=== PATIENT | male | born 1940 | race Caucasian/White ===

== ENCOUNTER 2024-12-19 09:24 | Emergency (ER) | payer MEDICARE, OTHER, SELFPAY ==
[2024-12-19] VITALS (8 sets, daily range): BP systolic 113–151; BP diastolic 56–110; BMI 26.5
--- NOTE | 2024-12-19 09:58 | ED.GENMED ---
History of Present Illness
General
Chief Complaint: Psychiatric Problem
Source: family and ambulance crew
Exam Limitations: dementia
Time Seen by Provider: 12/19/24 09:39
Nursing documentation reviewed up to this point in time: agreed with
History of Present Illness
History of Present Illness:
pt is a 84 y/o M with h/o parkinsons/dementia, htn,hld
here with ams per EMS per family
pt is not really able to offer any history
he is awake and alert, oriented to person and follows commands but is not able to answer many questions, is not oriented to time/place or situation
family did arrive, daughter and
and they are primary historians
say that 3 weeks ago pt was having more agitation and refusin to do things making it difficult to care for him
so his neurologist changed meds
d/c the cymbalta and seroquel and started zoloft and abilify
he has had worsenign agitation at times over the past 2 weeks
he has been refusing to cooperate and this is frustrating
he usually goes up and down the steps when daughter is home to walk inf ront of/behnid him but more recently it seems he doesn't want to do that, nor does he have strength to do it
they want to keep him home as long as possible and do not want him in residential care
they are wondering if there is some medical cause for his change in behavior
they also note pt has chronic facial asymmetry without any changes to his appearnce
Past History
Past History
ED Past Medical History: HTN, Hypercholesterolemia, Other (Mild memory issues) and Other (Chronic back issues)
ED Past Surgical History: Orthopedic and Tonsilectomy
Social History
Tobacco: Non-smoker
Alcohol: None
Drug: None
Personal:
Living: with family
Employment: Employed
Review of Systems
Review of Systems
Allergies reviewed?: Yes
All Other Systems: Not applicable
Phy Exam
Physical Exam
Physical Exam:
GENERAL: Alert , in no apparent distress, oriented x 1
HEAD: NCAT
EYE: pupils equal and reactive, no nystagmus, no photophobia
NECK: Supple,full rom, nontender
ENT: o/p clr, mmm.
CARDIAC: Regular rate and rhythm . no edema
LUNGS: Clear breath sounds bilaterally, no acute respiratory distress, no wheezes/rales/rhonchi
ABDOMEN: Soft, without focal tenderness, no r/g, no cvat
NEUROLOGICAL: alert and oriented x 1; slight downsloping of L corner of mouth; elevates it some but not symmetric to R side; 5/5
SKIN: Warm and dry, skin intact.
MUSCULOSKELETAL: No edema, well perfused.
PSYCH: Normal and appropriate interaction.
Course
Orders/Labs/Results
Orders:
Orders
12/19/24 09:47
Cardiac Monitoring- Treatment ONCE
Straight cath- Treatment ONCE
12/19/24 09:48
Electrocardiogram (*1) Stat
Reason for Study: Other
Other Reason for Exam: neuro symptoms
CT Head W/o Iv Contrast Urgent
Comment:
Reason For Exam: parkinsons; agitation; L facial droop
EKG- Treatment ONCE
12/19/24 10:16
Complete Blood Count/With Diff Urgent
Comprehensive Metabolic Panel Urgent
12/19/24 11:28
Urinalysis Reflex To Culture Urgent
Date Specimen was Collected: 12/19/24
Time Specimen was Collected: 11:27
12/19/24 11:55
Case Management Consult ONCE
Case Management Consult: Discharge Planning
Pt Eval And Treat Urgent
Activity Level: Ambulate
12/19/24 13:08
Carbidopa/Levodopa [Sinemet 25-100] 1 tablet PO NOW STA
12/19/24 13:20
Carbidopa/Levodopa [Sinemet 25-100] 1 tablet PO NOW STA
12/19/24 13:38
Case Management Consult ONCE
Case Management Consult: VN/Home Care
12/19/24 14:12
0.9% Sodium Chloride 250 ml [Nss] 250 ml IV BOLUS
12/19/24 23:00
Flush (0.9% Sodium Chloride) [Flush (Nss)] See Dose Instructions IV PER PROTOCOL
Abnormal Lab Results
12/19/24 12/19/24
10:16 11:28
RBC 4.61 L 10^6/uL
(4.70-6.10)
MCV 96.3 H fL
(80.0-94.0)
MCH 32.3 H pg
(27.0-31.0)
MPV 10.7 H fL
(7.4-10.4)
Abs Immat Gran (auto) 0.1 H 10^3/uL
(0-0.05)
Absolute Lymphs (auto) 0.8 L 10^3/uL
(1.2-3.4)
Absolute Monos (auto) 0.7 H 10^3/uL
(0.1-0.6)
Immature Gran % 1.1 H %
(0-0.5)
Neutrophils % 77.7 H %
(42.2-75.2)
Lymphocytes % 10.1 L %
(20.5-51.1)
AST 16 L U/L
(17-59)
Urine Ketones 1+ A
(Negative)
12/19/24 10:16
12/19/24 10:16
Vital Signs
Initial and Last Documented VS:
Initial Vital Signs
Temp Pulse Resp BP Pulse Ox
36.7 C 57 16 130/61 96
12/19/24 09:30 12/19/24 09:30 12/19/24 09:30 12/19/24 09:30 12/19/24 09:30
Last Documented Vital Signs
Temp Pulse Resp BP Pulse Ox
36.7 C 49 13 113/90 96
12/19/24 09:30 12/19/24 10:30 12/19/24 10:30 12/19/24 14:00 12/19/24 10:45
MDM/Problems Addressed
Differential Diagnosis Includes:
dementia, UTI, dehydration, stroke
MDM/Problems Addressed:
84 y/o M
parkinsons
chroincally worsening for 6 mo
family noticing some more dementia, refusal at activity/eating/slight agitation worse in the past 3 weeks
amado tto neuro and got new meds (abilify and zoloft)
on for 2 weeks and not really noticing any changes
pt seems to be more agitated about getting up and down the steps than weak
pt is sleeping, easily arousable and oriented to person
i noticed a sligth L facial droop which family says is normal
he has no focal strength deficity
medically he has hr 50s sinus
nomral bp
some chornic skin changes L arm bruising but nothing new;
seen by pcp and neuro
ct head no actue findings
wbc normal
bun normal
sodium normal
ua neg for infection
1+ ketones
small fluids given
no findings to explain his symptoms
suspect this is worsening of his parkinsons
daughter very adament about getting him home and not to NH
but she felt that he could use PT
PT eval here suggested that he could go to skilled but CM consult placed and but unable too place from ED and pt would like have obs admission, out of pocket cost which family declined
instead, they are arranging for hospital bed for their first floor which is happening today
as well as a chair lift
they want to keep him home
home PT will be arranged
family comfortable with this plan for now
*Critical Care Note
Total Time (30-74mins, 75-104mins- exclusive of procedures): Not Applicable
ED Attending Note
-
Portions of this chart may have been created with voice recognition software.� Occasional wrong word or��sound alike� substitutions may have occurred due to the inherent limitations of voice recognition software.
Discharge Plan
Departure
Patient Disposition: Home (Routine Discharge)
Date of Disposition: 12/19/24
Time of Disposition: 14:46
Patient with high blood pressure during this ER visit?: No
Condition: Fair
Covid-19: Not Applicable
Discharge Problem:
Dementia due to Parkinson's disease, Ambulatory dysfunction
Instructions: Parkinson disease, Dementia - ED discharge instructions
Prescriptions:
No Action
multivitamin Tablet
1 tab PO DAILY Qty: 0
atorvastatin 10 MG tablet
10 mg PO DAILY
calcium carbonate-vitamin D3 [Calcium 600 + D(3)] 600 mg-5 mcg (200 unit) Tablet
1 tab PO DAILY Qty: 0
ascorbic acid (vitamin C) [Vitamin C] 500 MG tablet
500 mg PO DAILY
lisinopril 5 MG tablet
5 mg PO DAILY
coenzyme Q10 [Co Q-10] 30 mg Capsule
30 mg PO DAILY Qty: 0
ibuprofen 600 MG tablet
600 mg PO TIDPRN PRN (Reason: mild pain)
fluticasone propionate 1 SPRAY spray,suspension
2 spray intranasal BIDPRN PRN (Reason: congestion)
citalopram 40 mg tablet
40 mg PO DAILY
donepezil 10 mg tablet
20 mg PO DAILY
clonazepam 1 mg tablet
1 mg PO HS
Patient Comments:
07/03/2023: last filled 06/11/23, 30 tabs for 30 days from [facility]
carbidopa-levodopa 25-100 mg tablet
1.5 tab PO TID
quetiapine 50 mg tablet
50 mg PO HS
memantine 28 mg capsule,sprinkle,ER 24hr
28 mg PO DAILY
Paxlovid 300 mg (150 mg x 2)-100 mg tablets,dose pack
See Rx Instructions .ROUTE .COMPLEX Qty: 30 0RF
Rx Instructions:
take TWO 150 mg tablets of nirmatrelvir with ONE 100 mg tablet of ritonavir twice daily for 5 days
Referrals:
Tex Orosco DO [Family Provider] -
Activity Restrictions/Additional Instructions:
I BELIEVE ISABELA IS EXPERIENCING SYPMTOSM OF HIS DEMENTIA RELATED TO HIS PARKINSONS
THERE WERE NO ACUTE FINDINGS TODAY
HE MAY HAVE BEEN MIIMIALLY DEHYDRATED, TRY TO HAVE HIM DRINK FLUIDS
SEE THE NEUROLOGIST REGARDING HIS MEDICATIONS
RETURN FOR INCREASED WEAKNESS, FALLS, FEVER ETC
OTHERWISE HOPEFULLY THE HOME PT AND THE HOSPITAL BED HELP
Interventions
Interventions:
*Risk Screen - Suicide Last Done: 12/19/24 09:30
*General Assessment Last Done: 12/19/24 09:30
*Neglect/Abuse Screening Last Done: 12/19/24 09:30
*ED- Fall Risk Assessment Last Done: 12/19/24 16:00
*ED COVID-19 Vaccine History Last Done: 12/19/24 16:00
*Nursing Disposition Last Done: 12/19/24 16:00
Discharge Date and Time
Discharge Date/Time: 12/19/24 16:00
Print Language: CHINESE
[2024-12-19 10:40] LABS: % Basophils 0.3 % (0-2); % Eosinophils 1.5 % (0-6); % Immature Granulocytes 1.1 % (0-0.5); % Lymphocytes 10.1 % (20.5-51.1); % Monocytes 9.3 % (1.7-9.3); % Neutrophils 77.7 % (42.2-75.2); Absolute Eosinophils 0.1 10^3/uL (0-0.7); Absolute Immature Granulocytes 0.1 10^3/uL (0-0.05); Absolute Lymphocytes 0.8 10^3/uL (1.2-3.4); Absolute Monocytes 0.7 10^3/uL (0.1-0.6); Absolute Neutrophils 6.1 10^3/uL (1.4-6.5); Hematocrit 44.4 % (39.0-52.0); Hemoglobin 14.9 g/dL (13.0-18.0); Mean Corp Hgb Conc. 33.6 g/dL (33.0-37.0); Mean Corpuscular Hgb 32.3 pg (27.0-31.0); Mean Corpuscular Volume 96.3 fL (80.0-94.0); Mean Platelet Volume 10.7 fL (7.4-10.4); Nucleated Red Blood Cells % 0 % (-); Platelet Count 244 10^3/uL (130-400); Red Blood Cell Count 4.61 10^6/uL (4.70-6.10); White Blood Cell Count 7.9 10^3/uL (4.8-10.8)
[2024-12-19 10:48] LABS: ALT (SGPT) < 10 U/L (0-50); AST (SGOT) 16 U/L (17-59); Alkaline Phosphatase 94 U/L (38-126); Blood Urea Nitrogen 12 mg/dl (9-20); Carbon Dioxide 29 mmol/L (22-30); Chloride 105 mmol/L (98-107); Estimated Creatinine Clearance 64 ml/min; Glucose 85 mg/dl (70-99); Potassium 4.5 mmol/L (3.5-5.1); Sodium 141 mmol/L (135-145); Total Bilirubin 0.9 mg/dl (0.2-1.3); Total Protein 6.5 g/dl (6.3-8.2); eGFR > 60.00
[2024-12-19 11:46] LABS: Urine Albumin Negative (Neg - Trace); Urine Bilirubin Negative (Negative); Urine Character Clear (Clear); Urine Color Yellow; Urine Glucose Negative (Negative); Urine Ketone 1+ (Negative); Urine Leukocyte Negative (Negative); Urine Nitrite Negative (Negative); Urine Occult Blood Negative (Negative); Urine Urobilinogen Negative (Neg - 1+)
[2024-12-19] MEDS: SINEMET 25-100 1 TABLET PO ×2 (13:31)
--- NOTE | 2024-12-19 13:59 | CM ---
Addendum entered by KRIS Duron 12/19/24 15:09:
Spoke to . Dgtr had call from [facility] and went home to get bed. says her son will also help get patient in house.
CM completed forms from [facility] for hospital bed and faxed back. Forms and documentation for bed given to [facility] liaison.
Original Note:
Met with patient, and dgtr. Spoke to PT and Ed PA. Patient lives with dgtr and his . He has Parkinson's and dementia. Last 2 days it has been more difficult to get him down stairs and to get him to walk. He has a rolling walker and shower
rails. They live in 2 level town home with half bath on entry level recruiter. 2-3 steps to enter home.
Full flight to second floor where patient bedroom and full bathroom are. Dgtr has started to call to set up having stairglide put in.
CM tried to get patient into [facility] program but he is not eligible for this. Dgtr not happy that medicare will not cover snf for short term.
CM talked extensively with and dgtr. Dgtr agreed to try to take patient home with first floor set up if CM can get hospital bed delivered today.
CM called [facility]. Script, face sheet and clinical notes from ER faxed to [phone].
phone for [facility] is [phone].
Dgtr is point person to schedule delivery of bed and her phone number provided to [facility].
Discussed VNA services. Dgtr wants RN, PT and [facility].
Discussed medicare ratings, options but had [facility] in past and would like them again. REferral information given to [facility] liaison.
PCP Cesar Orosco
Pharmacy: [facility]
PLAN: HOme from Er today if hospital bed can be delivered. and [facility].
[2024-12-19] MEDS: NSS 250 IV (14:24)
--- NOTE | 2024-12-19 14:52 | VNURNOTE ---
Chart reviewed. Home Health Liaison met with patient and spouse at bedside to discuss VN nurse/therapy, visits, schedule and homebound status. Spouse is agreeable and understands that visits at home will be 2-3 x per week to assess and teach
medical management. [facility] aware [facility] care [facility] 1-2 days after discharge from . Offered to order wheelchair- spouse declined. Daughter not present- was at house to accept hospital bed (ordered
through [facility]).
[facility].
== END 2024-12-19 16:00 | disposition home or self-care (01) ==
LOC: EMR 09:24
PROVIDERS: Physician Assistant; EMERGENCY PHYSICIAN Emergency Medicine; FAMILY PHYSICIAN Family Medicine; OTHER PHYSICIAN Psychiatry & Neurology Neurology
DX: G20.A1 Parkinson's disease without dyskinesia, without mention of fluctuations (principal); F02.A11 Dementia in other diseases classified elsewhere, mild, with agitation; R26.2 Difficulty in walking, not elsewhere classified; I10 Essential (primary) hypertension; E78.00 Pure hypercholesterolemia, unspecified; R29.810 Facial weakness; S40.022A Contusion of left upper arm, initial encounter; Z86.73 Personal history of transient ischemic attack (TIA), and cerebral infarction without residual deficits
CPT/HCPCS: 99284; 96360; 70450; 80053; 81003; 85025; 93005

== ENCOUNTER 2025-01-27 19:00 | Inpatient (IN) | payer MEDICARE, OTHER, SELFPAY ==
[2025-01-27 14:01] VITALS: BMI 26.7
[2025-01-27 14:04] VITALS: BP 156/64
[2025-01-27 14:23] LABS: % Basophils 0.4 % (0-2); % Eosinophils 0.8 % (0-6); % Immature Granulocytes 0.4 % (0-0.5); % Lymphocytes 7.6 % (20.5-51.1); % Monocytes 8.9 % (1.7-9.3); % Neutrophils 81.9 % (42.2-75.2); Absolute Eosinophils 0.1 10^3/uL (0-0.7); Absolute Lymphocytes 0.5 10^3/uL (1.2-3.4); Absolute Monocytes 0.6 10^3/uL (0.1-0.6); Absolute Neutrophils 5.8 10^3/uL (1.4-6.5); Hematocrit 42.8 % (39.0-52.0); Hemoglobin 14.4 g/dL (13.0-18.0); Mean Corp Hgb Conc. 33.6 g/dL (33.0-37.0); Mean Corpuscular Hgb 31.6 pg (27.0-31.0); Mean Corpuscular Volume 94.1 fL (80.0-94.0); Nucleated Red Blood Cells % 0 % (-); Platelet Count 245 10^3/uL (130-400); Red Blood Cell Count 4.55 10^6/uL (4.70-6.10); Red Cell Dist. Width 13.3 % (11.5-14.5); White Blood Cell Count 7.1 10^3/uL (4.8-10.8)
[2025-01-27 14:36] LABS: ALT (SGPT) < 10 U/L (0-50); AST (SGOT) 17 U/L (17-59); Albumin 4.1 g/dl (3.5-5.0); Alkaline Phosphatase 149 U/L (38-126); Blood Urea Nitrogen 16 mg/dl (9-20); Calcium 9.3 mg/dl (8.4-10.2); Carbon Dioxide 25 mmol/L (22-30); Chloride 108 mmol/L (98-107); Estimated Creatinine Clearance 71 ml/min; Glucose 91 mg/dl (70-99); Potassium 4.8 mmol/L (3.5-5.1); Sodium 140 mmol/L (135-145); Total Bilirubin 0.9 mg/dl (0.2-1.3); Total Protein 6.7 g/dl (6.3-8.2); eGFR > 60.00
[2025-01-27] MEDS: SINEMET 25-100 2 TABLET PO (16:44)
--- NOTE | 2025-01-27 17:24 | ED.GENMED ---
History of Present Illness
General
Chief Complaint: Change in Mental Status
Time Seen by Provider: 01/27/25 15:08
History of Present Illness
History of Present Illness:
84-year-old male presents the emergency department for evaluation of increased agitation and violent behavior. History of dementia. Resides at home with his and has been increasingly violent toward her to where she is concerned for her
safety. Patient cannot provide any independent history secondary to dementia
Past History
Past History
ED Past Medical History: HTN, Hypercholesterolemia, Other (Mild memory issues) and Other (Chronic back issues)
ED Past Surgical History: Orthopedic and Tonsilectomy
Social History
Tobacco: Non-smoker
Alcohol: None
Drug: None
Personal:
Living: with family
Employment: Employed
Review of Systems
Review of Systems
Allergies reviewed?: Yes
All Other Systems: ROS reviewed and negative except as documented in HPI and ROS
Phy Exam
Physical Exam
Physical Exam:
GEN: Well appearing, NAD, WDWN
HEENT: Oral mucosa moist, no scleral icterus
Cardiac: Regular rate
Lung: No respiratory distress, no tachypnea
MSK: No gross deformity or injuries
Skin: Good color, no pallor or jaundice, no rashes
Neuro: Alert, moving all extremities freely, pleasantly confused
Psych: Calm, cooperative
Course
Orders/Labs/Results
Orders:
Orders
01/27/25 14:00
EKG [Electrocardiogram (*1)] Urgent
Reason for Study: Fatigue / Weakness
EKG- Treatment ONCE
01/27/25 14:14
CBC/With Diff [Complete Blood Count/With Diff] Urgent
CMP [Comprehensive Metabolic Panel] Urgent
01/27/25 Dinner
IDDSI 5 - Minced & Moist
At Your Request: Full Participation
01/27/25 15:32
CT Head W/o Iv Contrast Urgent
Comment:
Reason For Exam: AMS
Urinalysis Reflex To Culture Urgent
Date Specimen was Collected: 01/27/25
Time Specimen was Collected: 15:36
01/27/25 16:26
Carbidopa/Levodopa [Sinemet 25-100] 2 tablet PO NOW STA
01/27/25 18:05
Admit/Transfer Patient As Directed
Co-Sign Provider:
Level of Care: Inpatient admission
Assign to:: Medical/Surgical
Physician / Group: Hospitalist
Diagnosis: Dementia
Reason for Hospitalization: .
Expected length of stay greater than two midnights?: Yes
ELOS- Estimated Length of Stay in days: 3
I certify the patient meets the requirements for IP care: Yes
PRN Pain Medication Management As Directed
May give lesser potent ordered pain med per pt: Yes
preference::
Protocol:: Medication orders for pain may be administered in a
manner that supports deferring to patient preference
when the pt is:
- Requesting an ordered lesser potent pain medication.
Least to most potent pain medications are defined
as: acetaminophen < NSAID < tramadol < opioids
(morphine, oxycodone, hydromorphone).
- Requesting a lesser dose of the same medication IF
ORDERED.
- Requesting a less intrusive route of administration
if both routes are prescribed by the provider (PO <
IV).
01/27/25 18:06
Code Status As Directed
Resuscitation Status: Do not resuscitate
Reached after discussion with pt or family/Healthcare POA: Yes
DNR Bracelet Application ONCE
01/27/25 18:08
Case Management Consult ONCE
Case Management Consult: Discharge Planning
Ot Eval And Treat Routine
Pt Eval And Treat Routine
Activity Level: Ambulate
01/27/25 19:29
Carbidopa/Levodopa [Sinemet 25-100] See Dose Instructions PO .COMPLEX
Lorazepam [Ativan] 1 mg IV Q6HPRN PRN
01/27/25 19:29
Consult Psychiatry [PSYCHIATRY CONSULT] Routine
Consulting Provider: Lindsey Rowland
Was physician already notified: Yes
Reason for consult: Dementia with behavioral disturbances
DX Deep Vein Thrombosis Video Routine
01/27/25 20:00
Heparin 5,000 units SC Q12
01/27/25 22:00
Risperidone [Risperdal] 0.5 mg PO HS
Abnormal Lab Results
01/27/25
14:14
RBC 4.55 L 10^6/uL
(4.70-6.10)
MCV 94.1 H fL
(80.0-94.0)
MCH 31.6 H pg
(27.0-31.0)
Absolute Lymphs (auto) 0.5 L 10^3/uL
(1.2-3.4)
Neutrophils % 81.9 H %
(42.2-75.2)
Lymphocytes % 7.6 L %
(20.5-51.1)
Chloride 108 H mmol/L
(98-107)
Alkaline Phosphatase 149 H U/L
(38-126)
01/27/25 14:14
01/27/25 14:14
Vital Signs
Initial and Last Documented VS:
Initial Vital Signs
BP
156/64
01/27/25 14:04
Last Documented Vital Signs
Pulse Resp BP Pulse Ox
57 16 156/64 94
01/27/25 16:30 01/27/25 16:30 01/27/25 14:04 01/27/25 14:30
MDM/Problems Addressed
MDM/Problems Addressed:
Patient without a safe discharge and a facilitation. No obvious medical/metabolic/infectious etiologies to symptoms, will admit for further management
*Critical Care Note
Total Time (30-74mins, 75-104mins- exclusive of procedures): Not Applicable
ED Attending Note
-
Portions of this chart may have been created with voice recognition software.� Occasional wrong word or��sound alike� substitutions may have occurred due to the inherent limitations of voice recognition software.
Discharge Plan
Departure
Patient Disposition: Admit
Date of Disposition: 01/27/25
Time of Disposition: 17:24
Admit to: Med/Surg
Presentation/result/management discussed w/ accepting MD/DO: Hospitalist
Discharge Problem:
Acute alteration in mental status, Agitation
Interventions
Interventions:
*Risk Screen - Suicide Last Done: 01/27/25 19:38
*General Assessment Last Done: 01/27/25 14:01
*Neglect/Abuse Screening Last Done: 01/27/25 14:01
*ED COVID-19 Vaccine History Last Done: 01/27/25 19:38
*Nursing Disposition Last Done: 01/27/25 19:51
ED- Pulmonary Assessment Last Done: 01/27/25 14:04
ED- Neurological Assessment Last Done: 01/27/25 14:04
ED- Cardiac Assessment Last Done: 01/27/25 14:04
ED Swallowing Screen Last Done: 01/27/25 14:04
Discharge Date and Time
Discharge Date/Time: 01/27/25 19:52
--- NOTE | 2025-01-27 18:09 | HPS.HSE ---
Family Physician
-
Family Physician: Tex Orosco
Chief Complaint
-
Violent behavior at home
History of Present Illness
84 years old male came from home by ambulance. History provided from family at bedside. Patient has history of dementia and Parkinson. Ambulatory dysfunction. Requiring home care including showering and feeding at home. Family reported that
patient had been deteriorating in the last few weeks/months. His primary neurologist Dr. Lundy started him on Abilify, Zoloft, and titrating up Aricept with amantadine in the last few months. Patient has very poor performance status at home
and relies on his family in all aspects. Recently, he had been violent with combative behavior at home and inability to take care of him at home otherwise he would be sleeping or lethargic. Family also reported history of staring episodes with
visual hallucinations at times. He is unable to recognize events or family most of the time. Family denied fever, respiratory symptoms, cough, chills but reported chronic soft stools.
Medical History
Past Medical History
Past Medical History: Reports Other (Dementia, Parkinson disease, hyperlipidemia, hypertension, gait dysfunction)
Past Surgical History: Reports Other (No recent major surgery)
Social History
Tobacco: Former Smoker
Alcohol: None
Drug: None
Personal:
Living: With Family
Employment: Retired
Family History
Family History: Other (Positive family history of dementia. His sister had heart disease)
Allergies / Home Medications
Allergies reflects when Allergies were last updated in [facility].
Home Medications with original date entered in [facility]
Allergy/Medication List:
Allergies
Allergy/AdvReac Type Severity Reaction Status Date / Time
horse serum Allergy Unknown Uncoded 05/20/18 01:44
Home Medications
lisinopril 5 mg tablet 5 mg PO MOWEFR Blood Pressure 05/20/18
carbidopa 25 mg-levodopa 100 mg tablet See Rx Instructions .Route .COMPLEX Neurological Condition 07/03/23
clonazepam 1 mg tablet 1 mg PO HS 07/03/23
donepezil 10 mg tablet 20 mg PO DAILY Neurological Condition 07/03/23
memantine 28 mg capsule sprinkle,extended release 24hr 28 mg PO DAILY Neurological Condition 07/03/23
acetaminophen 500 mg tablet 500 mg PO DAILY@0800,1200 01/27/25
aripiprazole 2 mg tablet 4 mg PO HS 01/27/25
ascorbic acid (vitamin C) 500 mg chewable tablet 500 mg PO DAILY 01/27/25
carbidopa ER 25 mg-levodopa 100 mg tablet,extended release 2 tab PO HS 01/27/25
sertraline 50 mg tablet 75 mg PO DAILY 01/27/25
Review of Systems
-
Unable to obtain full review of systems at this time due to: Dementia
Physical Exam
Vital Signs
Vital Signs
Pulse Resp BP Pulse Ox
57 16 156/64 94
01/27/25 16:30 01/27/25 16:30 01/27/25 14:04 01/27/25 14:30
Physical Exam
General: No Apparent Distress and Appears Chronically Ill
HEENT: Anicteric, Moist mucous membranes and Atraumatic
Respiratory: Clear
Cardiac: S1/S2 and Regular Rhythm
GI: Soft, Non Tender, Non Distended and Normal Bowel Sounds
Genito-urinary: No Davila
Musculoskeletal: No Clubbing, No Cyanosis and No Edema
Skin: Warm; No Jaundice
Neuro: Other (He opens eyes but does not focus, seems confused and unable to follow commands. Nodded no to pain.)
Psych: Apparent Dementia
Laboratory Results
-
01/27/25 14:14
01/27/25 14:14
Laboratory Results
Total Bilirubin 0.9 mg/dl (0.2-1.3) 01/27/25 14:14
AST 17 U/L (17-59) 01/27/25 14:14
ALT < 10 U/L (0-50) 01/27/25 14:14
Alkaline Phosphatase 149 U/L (38-126) H 01/27/25 14:14
Impression/Plan
-
84 years old male admitted with combative behavior
#Progressive worsening dementia with behavioral disturbances
Seems to be chronic in the last few months, precisely since October 2024. Patient's primary neurologist has been trying to titrate antipsychotic and sedatives. Currently on Abilify, Zoloft, Aricept, amantadine and clonazepam.
Per family, he sleeps most of the day and noticeably combative at times upon waking up
Family denied fever, chills, urinary symptoms, vomiting, respiratory symptoms. No sick contact.
No missing medications
Daughter also reported chronic staring episodes with visual hallucinations at time and did not feel relation to medication changes
Will continue supportive care for now.
CT head, no acute findings. Normal white count with normal temperature on admission
Continue Parkinson medications
Will hold Zoloft and Abilify. Will give IV Ativan for agitation and Risperdal
Consult psychiatrist, appreciate help
Consult PT/OT/caser
I discussed with family about need for pharmacological sedatives as benzodiazepine/antipsychotic, they fully understand management and agreeable.
Family is aware that patient likely end-stage dementia and might be comfort care appropriate.
# Advanced Parkinson medication with swallowing difficulty and dementia
Gait dysfunction requiring microbiology lab assistant at home
# Primary hypertension, will monitor and treat as appropriate
# CODE STATUS, DNR/DNI
Total time spent to see the patient, examine the patient, review data and lab results, discuss treatment plan with patient and his family at bed side ER doctor and nursing staff around 75 minutes
[2025-01-27] MEDS: SINEMET 25-100 3 TABLET PO (21:37)
[2025-01-27] MEDS: RISPERDAL 0.5 MG PO (21:37)
[2025-01-27] MEDS: HEPARIN 5000 UNITS SC (21:38)
[2025-01-27 23:00] VITALS: BP 101/72
[2025-01-28 06:00] VITALS: BMI 25.8
[2025-01-28 07:40] VITALS: BP 130/55
--- NOTE | 2025-01-28 09:02 | VNURNOTE ---
Chart reviewed. Patient is current with [facility] nursing. Will continue to follow hospital course and DC plans.
[2025-01-28 09:21] VITALS: PULSE 64; O2SAT 94
[2025-01-28 09:24] VITALS: PULSE 66; O2SAT 93
--- NOTE | 2025-01-28 09:42 | CM ---
CM following for discharge planning for this 84yo patient with Parkinsons and dementia. Daughter is POA.
Xavi lives with his in his daughter's 2 story home with one entry step.
He uses a rolling walker outside the home; [facility] is current with home PT.
Powder room on first floor; Full bath has a stand up shower with safety rails.
The patient's discharge plans will depend on the patient's progress. CM continues to be available to patient/family and is monitoring medical plan for needs at discharge.
Plan: Follow for all discharge planning needs; Resumption of [facility] vs. SNF
PCP: Tex Orosco
Pharmacy: [facility] in [place]
[2025-01-28] MEDS: HEPARIN 5000 UNITS SC ×2 (09:48→20:35)
[2025-01-28] MEDS: SINEMET 25-100 PO (09:49)
--- NOTE | 2025-01-28 10:30 | W.PN.HOSP.TC ---
Addendum entered and electronically signed by Wagner José MD 01/28/25 16:51:
Addendum
Discussed with neurologist.
Patient has advanced disease with myoclonus which could be either from high dose of Sinemet or dopamine/serotonin dysregulation after prolonged use. Nothing to offer further.
I spoke with daughter Sydni and her mother. Would like hospice consult. Case management was updated.
End
Addendum entered and electronically signed by Wagner José MD 01/28/25 16:37:
Addendum
Discussed with daughter bedside. She is asking for comfort care if no improvement. Await neurology input.
Reviewed psychiatry note, will restart low-dose of Aricept and Zoloft to avoid withdrawal.
Discussed with speech therapy, recommended comfort feeding and family is agreeable. Will order modified diet
End
Original Note:
Today's Communication/Plan
-
f/w neurology and psychiatry recommendations
consulted pillowcase turner
consulted PT/ OT
known dysphagia
Poor functional status
Assessment / Plan
Assessment / Plan
Physical Exam
General: No Apparent respiratory Distress and Appears Chronically Ill
HEENT: Anicteric. Atraumatic
Respiratory: Clear
Cardiac: S1/S2 and Regular Rhythm
GI: Soft, Non Tender, Non Distended and Normal Bowel Sounds
Genito-urinary: No Davila
Musculoskeletal: No Clubbing, No Cyanosis and No Edema
Skin: Warm; No Jaundice
Neuro: Other (He opens eyes but does not focus, seems confused and unable to follow commands. + Rigidity.
Psych: Apparent Dementia
84 years old male admitted with combative behavior
#Progressive worsening dementia with behavioral disturbances
Seems to be chronic in the last few months, precisely since October 2024. Patient's primary neurologist has been trying to titrate antipsychotic and sedatives. Currently on Abilify, Zoloft, Aricept, amantadine and clonazepam.
Per family, he sleeps most of the day and noticeably combative at times upon waking up
Family denied fever, chills, urinary symptoms, vomiting, respiratory symptoms. No sick contact.
No missing medications
Daughter also reported chronic staring episodes with visual hallucinations at time and did not feel relation to medication changes
c/w supportive care for now.
CT head, no acute findings, mild atrophy and moderate periventricular small vessel ischemic disease described as stable. Normal white count with normal temperature on admission
Continue Parkinson medications
Holding Zoloft and Abilify. PRN IV Ativan for agitation and Risperdal
Consulted psychiatrist & neurology, appreciate help
Consulted PT/OT/pillowcase turner
I discussed with family about need for pharmacological sedatives as benzodiazepine/antipsychotic, they fully understand management and agreeable.
Family is aware that patient likely end-stage dementia and might be comfort care appropriate.
# Advanced Parkinson medication with swallowing difficulty and dementia
Gait dysfunction requiring clinical assistant at home
# Primary hypertension, will monitor and treat as appropriate
# CODE STATUS, DNR/DNI
Total time spent to see the patient, examine the patient, review data and lab results, discuss treatment plan with patient and neurologist, and nursing staff around 55 minutes
Anticipated Discharge: 24 - 48 hours
Subjective/Interval History
-
Date of Service: January 28, 2025
He was given Risperdal at night and slept well
Objective Data
-
Vital Signs:
Vital Signs
Temp Pulse Resp BP Pulse Ox
98.1 F 42 12 130/55 96
01/28/25 07:40 01/28/25 07:40 01/28/25 07:40 01/28/25 07:40 01/28/25 07:40
--- NOTE | 2025-01-28 11:33 | CS.PSYCHR ---
Consult Summary - Psychiatry
-
Pt is an 84 yo male brought from home by ambulance, for worsening of Parkinson's dz with dementia, reportedly lethargic, requiring more care, with intermittent combative behavior. Pt noted deteriorating in recent weeks/months. History provided by
family in the ED. Pt's Neurologist Dr. Lundy reportedly started pt on Abilify, Zoloft, and was titrating up Aricept and memantine in the last few months. Reviewed with nursing staff, who reports pt lethargic/sleeping, will open his eyes at
times. Pt started on Risperidone 0.5 mg HS here, received first dose last night. This morning, pt asleep with mouth open. No restlessness or agitation. Pt noted with hx of swallowing difficulty.
Psych Hx: none noted other than above
SH: , living with family
MSE: sleeping soundly, resting comfortably/reclining in bed. No agitation at present
Imp: Dementia, advanced, in setting of Parkinson's dz, with intermittent agitation
Rec: Agree with trial of Risperidone, keeping dose low due to Parkinson's. Would consider tapering doses of Aricept and Zoloft- abrupt withdrawal could potentially worsen behavior, although the benefit for these is questionable
Would try a lower dose of prn IV Ativan given age and neurological status
Will follow
[2025-01-28 15:35] VITALS: BP 151/51
[2025-01-28] MEDS: SINEMET 25-100 3 TABLET PO (18:25)
[2025-01-28] MEDS: RISPERDAL 0.5 MG PO (20:48)
[2025-01-28] MEDS: ARICEPT 5 MG PO (20:48)
[2025-01-28 23:57] VITALS: BP 147/62
[2025-01-29 07:21] VITALS: BP 136/58
--- NOTE | 2025-01-29 09:18 | W.PN.HOSP.TC ---
Addendum entered and electronically signed by Yordan Prajapati MD 01/29/25 14:49:
Discussed with hospice nurse, who spoke to patient's daughter.
Daughter has agreed to comfort care measures only, daughter has agreed to stop all oral medications.
Will continue IV Ativan as needed for agitation.
Original Note:
Today's Communication/Plan
-
Continue goals of care discussions
Assessment / Plan
Assessment / Plan
84 years old male admitted with combative behavior
#Progressive worsening dementia with behavioral disturbances
Seems to be chronic in the last few months, precisely since October 2024. Patient's primary neurologist has been trying to titrate antipsychotic and sedatives.
Currently on Abilify, Zoloft, Aricept, amantadine and clonazepam. No missing medications.
Per family, he sleeps most of the day and noticeably combative at times upon waking up
Daughter also reported chronic staring episodes with visual hallucinations at time and did not feel relation to medication changes
CT head, no acute findings, mild atrophy and moderate periventricular small vessel ischemic disease described as stable. Normal white count with normal temperature on admission
Continue Parkinson medications
Holding Zoloft and Abilify. PRN IV Ativan for agitation and Risperdal
Appreciate neurology and psychiatry input, patient has end-stage Parkinson's and end-stage dementia, they agree with hospice
Family is aware that patient likely end-stage dementia and might be comfort care appropriate.
Hospice has been consulted, continue goals of care discussion, await family decision
# Advanced Parkinson medication with swallowing difficulty and dementia
Gait dysfunction requiring assignment desk assistant at home
# Primary hypertension, will monitor and treat as appropriate
DVT prophylaxis�subcu Lovenox
DNR
Total time spent to see the patient on the floor, examine the patient, review data and lab results, discuss treatment plan with patient, nursing staff around 35 minutes.
Physical Exam
General: No Apparent respiratory Distress and Appears Chronically Ill
HEENT: Anicteric. Atraumatic
Respiratory: Clear
Cardiac: S1/S2 and Regular Rhythm
GI: Soft, Non Tender, Non Distended and Normal Bowel Sounds
Genito-urinary: No Davila
Musculoskeletal: No Clubbing, No Cyanosis and No Edema
Skin: Warm; No Jaundice
Neuro: Other (He opens eyes but does not focus, seems confused and unable to follow commands. + Rigidity.
Psych: Apparent Dementia
Anticipated Discharge: 24 - 48 hours
Subjective/Interval History
-
Date of Service: January 29, 2025
Patient is able to tell me his name. He thinks he is at home. Denies pain, denies shortness of breath. No fever, no vomiting.
Objective Data
-
Vital Signs:
Vital Signs
Temp Pulse Resp BP Pulse Ox
98.0 F 53 16 136/58 92
01/29/25 07:21 01/29/25 07:21 01/29/25 07:21 01/29/25 07:21 01/29/25 07:21
I&O
01/28/25 01/29/25 01/30/25
06:59 06:59 06:59
Intake Total 120 / 120
Balance 120 / 120
[2025-01-29] MEDS: ZOLOFT 25 MG PO (09:22)
[2025-01-29] MEDS: HEPARIN 5000 UNITS SC (09:22)
[2025-01-29] MEDS: SINEMET 25-100 3 TABLET PO (09:22)
--- NOTE | 2025-01-29 09:30 | CON.NEURO ---
Neuro Assessment/Plan
Assessment
the described movement is myoclonus, and may be due to high doses of Sinemet, or longstanding Sinemet use resulting in dopamine/serotonin dysregulation. I would not treat this as hyperkinetic movements in Parkinson's is generally not bothersome
compared to the other symptoms but it may respond to benzos, barbiturates, or antiseizure drugs.
End stage Parkinson's and End stage dementia, agree hospice
Consultation
Order
Date of Consultation: 01/28/25
Requesting Provider: Olivia José
Reason for Consult: abnormal movement
Subjective/Objective
Subjective Data
Date of Service: January 29, 2025
From H&P:
84 years old male came from home by ambulance. History provided from family at bedside. Patient has history of dementia and Parkinson. Ambulatory dysfunction. Requiring home care including showering and feeding at home. Family reported that
patient had been deteriorating in the last few weeks/months. His primary neurologist Dr. Lundy started him on Abilify, Zoloft, and titrating up Aricept with amantadine in the last few months. Patient has very poor performance status at home
and relies on his family in all aspects. Recently, he had been violent with combative behavior at home and inability to take care of him at home otherwise he would be sleeping or lethargic. Family also reported history of staring episodes with
visual hallucinations at times. He is unable to recognize events or family most of the time. Family denied fever, respiratory symptoms, cough, chills but reported chronic soft stools.
Neurology consulted for hyperkinetic movement disorder - dtr noticed past few days, large amplitude quick jerking movement faster than voluntary movement occurring during awake and asleep. noticed this ~1 month ago. question of relation to
Parkinson's or meds. patient with end stage dementia and Parkinson's. family accepts that he is end stage and appropriate for hospice. Meds included longstanding Sinemet 14 tab/day, Aricept 20 mg, Namenda 28 mg, sertraline, Abilify, and clonazepam
Objective Data
Vital Signs
Temp Pulse Resp BP Pulse Ox
36.7 C 53 16 136/58 92
01/29/25 07:21 01/29/25 07:21 01/29/25 07:21 01/29/25 07:21 01/29/25 07:21
Lab Results
01/27/25 14:14
01/27/25 14:14
Sodium 140 mmol/L (135-145) 01/27/25 14:14
Potassium 4.8 mmol/L (3.5-5.1) 01/27/25 14:14
BUN 16 mg/dl (9-20) 01/27/25 14:14
Glucose 91 mg/dl (70-99) 01/27/25 14:14
Calcium 9.3 mg/dl (8.4-10.2) 01/27/25 14:14
Patient Allergies
horse serum Allergy (Uncoded 05/20/18 01:44)
Unknown
Physical Exam
-
minimally responsive
Medications
-
Active Medications
Generic Name Dose Route Start Last Admin
Trade Name Freq PRN Reason Stop Dose Admin
Carbidopa/Levodopa 2 tablet 01/28/25 11:00 01/28/25 17:30
Carbidopa (25 Mg)/Levodopa (100 Mg) Regular Release Tablet PO 02/25/25 10:59 Not Given
DAILY@1100,1600 ATILIO
Carbidopa/Levodopa 3 tablet 01/27/25 20:00 01/28/25 18:25
Carbidopa (25 Mg)/Levodopa (100 Mg) Regular Release Tablet PO 02/24/25 19:59 3 tablet
DAILY@0800,1830 ATILIO Administration
Donepezil HCl 5 mg 01/28/25 22:00 01/28/25 20:48
Donepezil 5 Mg Tablet PO 02/25/25 21:59 5 mg
HS ATILIO Administration
Heparin Sodium 5,000 units 01/27/25 20:00 01/28/25 20:35
Heparin 5,000 Units/Ml 1 Ml Vial SC 02/24/25 19:59 5,000 units
Q12 ATILIO Administration
Lorazepam 0.5 mg 01/28/25 11:49
Lorazepam 2 Mg/Ml Vial IV 02/25/25 11:48
Q6HPRN PRN
agitation
Risperidone 0.5 mg 01/27/25 22:00 01/28/25 20:48
Risperidone 0.5 Mg Tablet PO 02/24/25 21:59 0.5 mg
HS ATILIO Administration
Sertraline HCl 25 mg 01/29/25 08:00
Sertraline 25 Mg Tablet PO 02/26/25 07:59
DAILY ATILIO
Sodium Chloride 0 flush 01/27/25 20:00
Sodium Chloride 0.9% (Flush) Syringe IV 02/24/25 19:59
PER PROTOCOL ATILIO
Sodium Chloride 0.25 ml 01/28/25 11:52
Nss (Pf) 10 Ml Vial For Ativan 0.5 Mg Dose IV 02/25/25 11:51
Q6HPRN PRN
IV LORAZEPAM DILUTION
Home Medications
�Medication �Instructions �Recorded
lisinopril 5 mg tablet 5 mg PO MOWEFR Blood Pressure 05/20/18
carbidopa 25 mg-levodopa 100 mg See Rx Instructions .Route 07/03/23
tablet .COMPLEX Neurological Condition
clonazepam 1 mg tablet 1 mg PO HS anxiety 07/03/23
donepezil 10 mg tablet 20 mg PO DAILY memory/cognition 07/03/23
memantine 28 mg capsule 28 mg PO DAILY memory/cognition 07/03/23
sprinkle,extended release 24hr
acetaminophen 500 mg tablet 500 mg PO DAILY@0800,1200 Pain 01/27/25
aripiprazole 2 mg tablet 4 mg PO HS Mental Health/Anxiety 01/27/25
ascorbic acid (vitamin C) 500 mg 500 mg PO DAILY Supplement 01/27/25
chewable tablet
carbidopa ER 25 mg-levodopa 100 mg 2 tab PO HS Neurological Condition 01/27/25
tablet,extended release
sertraline 50 mg tablet 75 mg PO DAILY depression/anxiety 01/27/25
--- NOTE | 2025-01-29 14:15 | HOSPNOTE ---
Addendum entered by Alia Olea RN 01/29/25 14:28:
Spoke with daughter and she is requesting the patient remain here on hospice, I explained that there is criteria to remain here on hospice. The patient can not come home do to violent behavior issues and the daughter does not want him to go to a
usp with hospice. So the plan is comfort medications only. Attending and CM aware.
Original Note:
Left a message for the daughter to please call me to discuss hospice and the philosophy. More information to follow.
[2025-01-29 14:53] VITALS: BP 149/80
[2025-01-29] MEDS: ATIVAN 0.5 MG IV ×3 (15:03→21:38)
[2025-01-29] MEDS: MORPHINE SULFATE 2 MG IV ×3 (15:03→21:36)
--- NOTE | 2025-01-29 15:16 | CM ---
Patient seen at bedside on . patient did not respond to CM. Patient now being transferred to [facility] per Operations Architect and CM will continue to follow for discharge planning needs.
Plan; comfort care
[2025-01-29] MEDS: ROBINUL 0.2 MG IV (17:51)
[2025-01-29] MEDS: NSS (PRESERVATIVE FREE) 0.25 ML IV (21:42)
[2025-01-29 23:42] VITALS: BP 128/65
[2025-01-30] MEDS: MORPHINE SULFATE 2 MG IV ×4 (03:13→22:21)
[2025-01-30 07:00] VITALS: BP 159/53
[2025-01-30] MEDS: FLUSH (NSS) 1 FLUSH IV (09:07)
--- NOTE | 2025-01-30 09:48 | W.PN.HOSP.TC ---
Today's Communication/Plan
-
Continue comfort care measures only
Assessment / Plan
Assessment / Plan
84 years old male admitted with combative behavior
#Progressive worsening dementia with behavioral disturbances
Seems to be chronic in the last few months, precisely since October 2024. Patient's primary neurologist has been trying to titrate antipsychotic and sedatives.
Currently on Abilify, Zoloft, Aricept, amantadine and clonazepam. No missing medications.
Per family, he sleeps most of the day and noticeably combative at times upon waking up
Daughter also reported chronic staring episodes with visual hallucinations at time and did not feel relation to medication changes
CT head, no acute findings, mild atrophy and moderate periventricular small vessel ischemic disease described as stable. Normal white count with normal temperature on admission
Continue Parkinson medications
Holding Zoloft and Abilify. PRN IV Ativan for agitation and Risperdal
Appreciate neurology and psychiatry input, patient has end-stage Parkinson's and end-stage dementia, they agree with hospice
Family is aware that patient likely end-stage dementia and might be comfort care appropriate
01/29/2025�daughter/POA agreed to comfort care measures only, and agreed to discontinue all oral medications
Hospice following, continue comfort care measures only
# Advanced Parkinson medication with swallowing difficulty and dementia
Gait dysfunction requiring buyer assistant at home
# Primary hypertension
DNR
Total time spent to see the patient on the floor, examine the patient, review data and lab results, discuss treatment plan with patient, nursing staff around 35 minutes.
Physical Exam
General: No Apparent respiratory Distress and Appears Chronically Ill
HEENT: Anicteric. Atraumatic
Respiratory: Clear
Cardiac: S1/S2 and Regular Rhythm
GI: Soft, Non Tender, Non Distended and Normal Bowel Sounds
Genito-urinary: No Davila
Musculoskeletal: No Clubbing, No Cyanosis and No Edema
Skin: Warm; No Jaundice
Neuro: Other (He opens eyes but does not focus, seems confused and unable to follow commands. + Rigidity.
Psych: Apparent Dementia
Anticipated Discharge: > 48 hours
Subjective/Interval History
-
Date of Service: January 30, 2025
Patient resting calmly. He is not answering questions today. No fever, no vomiting.
Objective Data
-
Vital Signs:
Vital Signs
Temp Pulse Resp BP Pulse Ox
98.4 F 58 17 159/53 92
01/30/25 07:00 01/30/25 07:00 01/30/25 07:00 01/30/25 07:00 01/30/25 07:55
I&O
01/29/25 01/30/25 01/31/25
06:59 06:59 06:59
Intake Total 120 / 120
Balance 120 / 120
--- NOTE | 2025-01-30 12:52 | W.PN.UPDATE ---
Update Note
Progress Note Update
psych signing off as patient now hospice and not taking oral medications. i did reviewed chart. would NOT give this parkinson's patient haloperidol and i have dc'ed it as it can increase sx of PD and if you are dc'ing his oral meds for PD it could
make him much more uncomfortable in the next days. would also avoid risperdal and any antipsychotic with a higher incidence of EPS
[2025-01-30] MEDS: ATIVAN 0.5 MG IV ×2 (17:02→22:20)
[2025-01-30] MEDS: NSS (PRESERVATIVE FREE) 0.25 ML IV ×2 (17:02→22:26)
[2025-01-30 23:45] VITALS: BP 174/74
[2025-01-31 00:43] VITALS: BP 140/73
[2025-01-31] MEDS: MORPHINE SULFATE 2 MG IV ×2 (05:09→16:54)
[2025-01-31 07:00] VITALS: BP 161/65
--- NOTE | 2025-01-31 07:29 | W.PN.HOSP.TC ---
Today's Communication/Plan
-
Discharge to inpatient hospice today
Assessment / Plan
Assessment / Plan
84 years old male admitted with combative behavior
#Progressive worsening dementia with behavioral disturbances
Seems to be chronic in the last few months, precisely since October 2024. Patient's primary neurologist has been trying to titrate antipsychotic and sedatives.
Currently on Abilify, Zoloft, Aricept, amantadine and clonazepam. No missing medications.
Per family, he sleeps most of the day and noticeably combative at times upon waking up
Daughter also reported chronic staring episodes with visual hallucinations at time and did not feel relation to medication changes
CT head, no acute findings, mild atrophy and moderate periventricular small vessel ischemic disease described as stable. Normal white count with normal temperature on admission
Continue Parkinson medications
Holding Zoloft and Abilify. PRN IV Ativan for agitation and Risperdal
Appreciate neurology and psychiatry input, patient has end-stage Parkinson's and end-stage dementia, they agree with hospice
Family is aware that patient likely end-stage dementia and might be comfort care appropriate
01/29/2025�daughter/POA agreed to comfort care measures only, and agreed to discontinue all oral medications
Hospice following, continue comfort care measures only
# Advanced Parkinson medication with swallowing difficulty and dementia
Gait dysfunction requiring clinical trial assistant at home
# Primary hypertension
DNR
Total time spent to see the patient on the floor, examine the patient, review data and lab results, discuss treatment plan with patient, nursing staff around 35 minutes.
Physical Exam
General: No Apparent respiratory Distress and Appears Chronically Ill
HEENT: Anicteric. Atraumatic
Respiratory: Clear
Cardiac: S1/S2 and Regular Rhythm
GI: Soft, Non Tender, Non Distended and Normal Bowel Sounds
Genito-urinary: No Davila
Musculoskeletal: No Clubbing, No Cyanosis and No Edema
Skin: Warm; No Jaundice
Neuro: Other (He opens eyes but does not focus, seems confused and unable to follow commands. + Rigidity.
Psych: Apparent Dementia
Anticipated Discharge: Today
Subjective/Interval History
-
Date of Service: January 31, 2025
Patient resting comfortably. No fever, no vomiting.
Objective Data
-
Vital Signs:
Vital Signs
Temp Pulse Resp BP Pulse Ox
97.5 F 54 12 161/65 94
01/31/25 07:00 01/31/25 07:00 01/31/25 08:00 01/31/25 07:00 01/31/25 07:00
I&O
01/30/25 01/31/25 02/01/25
06:59 06:59 06:59
Intake Total 120 / 120
Balance 120 / 120
--- NOTE | 2025-01-31 08:53 | HOSPNOTE ---
Spoke with daughter and patient will be admitted inpatient hospice for agitation and discomfort. Daughter will sign consents and admissions was called.
--- NOTE | 2025-01-31 12:33 | CM ---
Patient chart reviewed
per hospice/home health aide noted
patient will be admitted inpatient hospice for agitation and discomfort
referral placed in [facility]
PLAN: Hospice
[2025-01-31 15:05] VITALS: BP 143/72
[2025-01-31] MEDS: ATIVAN 0.5 MG IV (16:09)
[2025-01-31 16:36] VITALS: BP 154/101
--- NOTE | 2025-01-31 17:27 | PTCARENOTE ---
Chart being flipped to inpatient hospice, see new chart for documentation.
== END 2025-01-31 17:35 | disposition hospice, inpatient (51) | DRG 884 ==
LOC: 2 NORTH 19:00
PROVIDERS: ADMITTING PHYSICIAN Internal Medicine; ATTENDING PHYSICIAN Family Medicine; EMERGENCY PHYSICIAN Student in an Organized Health Care Education/Training Program; FAMILY PHYSICIAN Family Medicine; OTHER PHYSICIAN Psychiatry & Neurology Clinical Neurophysiology; OTHER PHYSICIAN Psychiatry & Neurology Psychiatry
DX: F03.911 Unspecified dementia, unspecified severity, with agitation (principal); F02.818 Dementia in other diseases classified elsewhere, unspecified severity, with other behavioral disturbance; F02.811 Dementia in other diseases classified elsewhere, unspecified severity, with agitation; G20.A1 Parkinson's disease without dyskinesia, without mention of fluctuations; G25.3 Myoclonus; Z66 Do not resuscitate; I10 Essential (primary) hypertension; Z51.5 Encounter for palliative care; Z87.891 Personal history of nicotine dependence
CPT/HCPCS: 70450; 80053; 85025; 92610; 93005; 97163; 97167; 99285

== ENCOUNTER 2025-01-31 17:36 | Inpatient (IN) | payer OTHER, SELFPAY ==
[2025-01-31 18:03] VITALS: BMI 25.8
[2025-01-31 18:43] VITALS: BP 154/101
--- NOTE | 2025-01-31 18:45 | ADM.HSP ---
Admission - Hospice
History of Present Illness
84 year old male with a past medical history of end-stage dementia, Parkinson's disease, ambulatory dysfunction, and hypertension was brought in by family for increased agitation and aggression. Family has been caring for patient at home, and
patient has been deteriorating. He is mostly nonverbal, with poor oral intake. Recently, he has been violent with combative behavior at home. Now family is unable to continue caring for him at home due to his combativeness and aggression. Family
also reported history of staring episodes with visual hallucinations at times. Patient was seen in conjunction with psychiatry and neurology, who recommends hospice for his end-stage dementia and Parkinson's disease. Patient was seen in
conjunction with the hospice nurse. Family agreed to transition the patient to comfort care measures only on 01/29/2025, and he is admitted to inpatient hospice.
Reason for Hospice Admission
Comfort care measures only
Review of Systems
Unable to obtain full review of systems at this time due to: Unresponsive
Physical Exam
Temp Pulse Resp BP Pulse Ox
98.4 F 75 14 159/79 94
01/31/25 20:06 01/31/25 20:06 01/31/25 20:06 01/31/25 20:06 01/31/25 20:06
General: No Apparent Distress and Comfortable
Respiratory: Clear to Auscultation
Cardiology: Regular Rhythm
GI: Soft, Nondistended and Normal Bowel Sounds
Musculoskeletal: No Clubbing, No Cyanosis and No Edema
Psych: Calm
Assessment/Medication Plan
Generic Name Dose Route Start Last Admin
Trade Name Freq PRN Reason Stop Dose Admin
Acetaminophen 650 mg 01/31/25 15:08
Acetaminophen 650 Mg Rectal Suppository RECTAL 02/28/25 15:07
Q4HPRN PRN
mild pain, ESPINAL, or temp >100.4F
Acetaminophen 650 mg 01/31/25 15:08
Acetaminophen 325 Mg Tablet PO 02/28/25 15:07
Q4HPRN PRN
mild pain, ESPINAL, or temp >100.4F
Bisacodyl 10 mg 01/31/25 15:08
Bisacodyl 10 Mg Rectal Suppository RECTAL 02/28/25 15:07
DAILYPRN PRN
if no BM for 3 days
Glycopyrrolate 0.2 mg 01/31/25 15:08
Glycopyrrolate 0.2 Mg/Ml Vial IV 02/28/25 15:07
Q4HPRN PRN
excessive secretions
Hyoscyamine Sulfate 0.125 mg 01/31/25 15:08
Hyoscyamine Sulfate 0.125 Mg/Ml In Oral Syringe SL 02/28/25 15:07
Q4HPRN PRN
excessive secretions
Morphine Sulfate/Sodium Chloride 100 mg in 100 mls @ 0 mls/hr 01/31/25 15:15
Morphine IV
PER PROTOCOL ATILIO
Protocol
Per Protocol
Lorazepam 0.5 mg 01/31/25 18:49
Lorazepam 0.5 Mg Tablet SL 02/28/25 18:48
Q2HPRN PRN
anxiety
Morphine Sulfate 2 mg 01/31/25 15:14 02/01/25 06:09
Morphine 2 Mg/Ml Syringe IV 02/14/25 15:13 2 mg
Q1HPRN PRN Administration
moderate-severe pain / dyspnea
Morphine Sulfate 0 mg 01/31/25 15:14
Morphine 2 Mg/Ml Syringe IV 02/14/25 15:13
[id number] PRN
moderate-severe pain / dyspnea
Protocol
Ondansetron HCl 4 mg 01/31/25 15:08
Ondansetron 4 Mg/2 Ml Vial IV 02/28/25 15:07
Q6HPRN PRN
nausea/vomiting
Pharmacy Profile Note 0 unit 01/31/25 16:[address] 1 Unit IV 02/28/25 15:59
DIRECTED ATILIO
Prochlorperazine Edisylate 5 mg 01/31/25 15:08
Prochlorperazine 10 Mg/2 Ml Vial IV 02/28/25 15:07
Q6HPRN PRN
nausea/vomiting
Sodium Chloride 0 flush 01/31/25 18:00
Sodium Chloride 0.9% (Flush) Syringe IV 02/28/25 17:59
PER PROTOCOL ATILIO
--- NOTE | 2025-01-31 19:00 | HOSPNOTE ---
Patient is admitted inpatient hospice. Daughter Sydni signed consents. Inpatient for management of pain and anxiety/agitation. Hospice will visit daily.
[2025-01-31 20:06] VITALS: BP 159/79
[2025-01-31] MEDS: MORPHINE SULFATE 2 MG IV (22:16)
[2025-02-01] MEDS: MORPHINE SULFATE 2 MG IV ×3 (06:09→16:43)
[2025-02-01 07:00] VITALS: BP 149/67
[2025-02-01 08:10] VITALS: BP 149/67
--- NOTE | 2025-02-01 08:46 | W.PN.HOSP.TC ---
Today's Communication/Plan
-
Continue comfort care measures only
Assessment / Plan
Assessment / Plan
84 year old male with a past medical history of end-stage dementia, Parkinson's disease, ambulatory dysfunction, and hypertension was brought in by family for increased agitation and aggression. Family has been caring for patient at home, and
patient has been deteriorating. He is mostly nonverbal, with poor oral intake. Recently, he has been violent with combative behavior at home. Now family is unable to continue caring for him at home due to his combativeness and aggression. Family
also reported history of staring episodes with visual hallucinations at times. Patient was seen in conjunction with psychiatry and neurology, who recommends hospice for his end-stage dementia and Parkinson's disease. Patient was seen in
conjunction with the hospice nurse. Family agreed to transition the patient to comfort care measures only on 01/29/2025, and he is admitted to inpatient hospice.
#Progressive worsening dementia with behavioral disturbances
Seems to be chronic in the last few months, precisely since October 2024. Patient's primary neurologist has been trying to titrate antipsychotic and sedatives.
Currently on Abilify, Zoloft, Aricept, amantadine and clonazepam. No missing medications.
Per family, he sleeps most of the day and noticeably combative at times upon waking up
Daughter also reported chronic staring episodes with visual hallucinations at time and did not feel relation to medication changes
CT head, no acute findings, mild atrophy and moderate periventricular small vessel ischemic disease described as stable. Normal white count with normal temperature on admission
Continue Parkinson medications
Holding Zoloft and Abilify. PRN IV Ativan for agitation and Risperdal
Appreciate neurology and psychiatry input, patient has end-stage Parkinson's and end-stage dementia, they agree with hospice
Family is aware that patient likely end-stage dementia and might be comfort care appropriate
01/29/2025�daughter/POA agreed to comfort care measures only, and agreed to discontinue all oral medications
Hospice following, continue comfort care measures only
# Advanced Parkinson medication with swallowing difficulty and dementia
Gait dysfunction requiring dental assistant medical assistant at home
# Primary hypertension
DNR
Physical Exam
General: No Apparent respiratory Distress and Appears Chronically Ill
HEENT: Anicteric. Atraumatic
Respiratory: Clear
Cardiac: S1/S2 and Regular Rhythm
GI: Soft, Non Tender, Non Distended and Normal Bowel Sounds
Musculoskeletal: No Clubbing, No Cyanosis and No Edema
Neuro: Other (He opens eyes but does not focus, seems confused and unable to follow commands. + Rigidity.
Psych: Apparent Dementia
Anticipated Discharge: 24 - 48 hours
Subjective/Interval History
-
Date of Service: February 01, 2025
Patient resting comfortably. No fever, no vomiting.
Objective Data
-
Vital Signs:
Vital Signs
Temp Pulse Resp BP Pulse Ox
98.4 F 75 14 159/79 94
01/31/25 20:06 01/31/25 20:06 01/31/25 20:06 01/31/25 20:06 01/31/25 20:06
I&O
01/31/25 02/01/25 02/02/25
06:59 06:59 06:59
Intake Total 0 / 0
Output Total 280 / 280
Balance -280 / -280
[2025-02-01 08:57] VITALS: BP 149/67
--- NOTE | 2025-02-01 12:28 | CM ---
CM following re: discharge planning.
Reviewed pt's chart.
Pt is admitted to inpatient hospice with hospice GIP.
CM is available for emotional support.
--- NOTE | 2025-02-01 15:44 | HOSPNOTE ---
ANALYTICS SPECIALIST VISITED 84 YEAR OLD PATIENT TO CONDUCT INITIAL STEAM CONDITIONER OPERATOR ASSESSMENT. PATIENT RECENTLY ADMITTED ONTO HOSPICE SERVICES AND GIP LEVEL OF CARE WITH THE PRIMARY DIAGNOSIS OF PARKINSON DISEASE. NURSE REPORTED MEDICATIONS ADMINISTERED AND
PATIENT RESTING COMFORTABLY, NO CONCERNS. PATIENT'S SISTER AT PATIENT'S BEDSIDE. STEAM CONDITIONER OPERATOR GREETED PATIENT WHILE ENTERING HIS ROOM, NO RESPONSE. NO FAMILY PRESENT AT PATIENT'S BEDSIDE. PATIENT ASLEEP AND APPEARED TO BE RESTING COMFORTABLY, NO SIGNS OF
PAIN AND/DISTRESS OBSERVED. PATIENT SHIFTED IN BED AND MOANED. PATIENT OPENED HIS EYES, STEAM CONDITIONER OPERATOR ASKED PATIENT IF HE WAS IN PAIN, NO RESPONSE. PATIENT CLOSED HIS EYES. STEAM CONDITIONER OPERATOR CONTACTED PATIENT'S DAUGHTER MANUEL TO CHECK ON HER, PATIENT'S SPOUSE RUSSELL,
AND PATIENT'S SON ISABELA. MANUEL REPORTED THEY'RE DOING OKAY. MANUEL REPORTED THEY HAVE BEEN CRYING SINCE TUESDAY AND IT'S HARD FOR THEM TO SEE PATIENT LIKE THIS BUT THEY'RE GOING TO BE BY HIS SIDE BECAUSE THEY DON'T WANT PATIENT ALONE. MANUEL
REPORTED PATIENT'S SISTER IS IN TOWN FROM [place] AND SHE'S BRINGING HER TO SEE PATIENT LATER THIS AFTERNOON. MANUEL REPORTED PATIENT'S OTHER SISTER HAS DEMENTIA AND SHE'S NOT DOING GOOD. PATIENT HAS 2 CHILDREN MANUEL AND ISABELA. MANUEL IS THE
PRIMARY CAREGIVER AND POA. MANUEL REPORTED PATIENT HAS NO GRANDCHILDREN CHILDREN BECAUSE HER AND ISABELA LATE IN LIFE. MANUEL REPORTED PATIENT AND SPOUSE HAVE BEEN FOR 60 YEARS. MANUEL REPORTED THEY MET IN [place] AT A DANCE AND
PATIENT WAS ACTUALLY ENGAGED TO SOMEONE ELSE, PATIENT WENT HOME AND CALLED OFF THE ENGAGEMENT AND HE AND SPOUSE HAVE BEEN TOGETHER EVERY SINCE. 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 SPOUSE BECAME
EMOTIONAL. EMOTIONAL SUPPORT PROVIDED.
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 PATIENT LOVE TO GOLF, BARBECUE, AND CARE FOR HIS FAMILY. PATIENT HAD A MOTORCYCLE, BOUGHT MANUEL A DIRT BIKE, BOUGHT MICKEY GO CART AND THEY WOULD RIDE TOGETHER FOR HOURS. MANUEL
BECAME EMOTIONAL. EMOTIONAL SUPPORT PROVIDED.
PATIENT IS LUTHERAN AND NO LUTHERAN AFFILIATION. PATIENT WISHES ARE TO BE CREMATED. MANUEL REPORTED PATIENT SAID IF ANYBODY NEEDED TO SEE HIM THEY SHOULD DO IT WHILE HE'S ALIVE AND NOT . FAMILY UTILIZING [facility] IN [facility] FOR ARRANGEMENTS. MANUEL REPORTED THE FAMILY WILL GATHER PRIVATELY FOR DINNER NO OTHER SERVICES. MUCH EMOTIONAL SUPPORT PROVIDED
PATIENT MEETS GIP CRITERIA FOR SN ASSESSMENTS, MANAGEMENT OF PAIN, AND AGITATION THAT COULD NOT BE MANAGED AT HOME AND/OR IN AN OUTPATIENT SETTING. DISCHARGE PLANNING CONTINUES.
STEAM CONDITIONER OPERATOR WILL CONDUCT VISITS ONCE A WEEK WHILE ON GIP LOC TO PROVIDE SUPPORTIVE SERVICES AND TO MONITOR FOR ADDITIONAL SERVICES.
[2025-02-01] MEDS: ATIVAN 0.5 MG SL (16:06)
--- NOTE | 2025-02-01 17:02 | HOSPNOTE ---
Patient GIP for management of pain and agitation requiring IV pain medication, patient has required 5 doses of Morphine in the last 24 hours. Patient in bed, eyes open, non verbal. Patients famiyl at the bedside, reviewed the changes that may occur
as patient declines, understanding stated.
[2025-02-01 20:12] VITALS: BP 127/89
[2025-02-02 07:34] VITALS: BP 190/63
--- NOTE | 2025-02-02 07:34 | W.PN.HOSP.TC ---
Today's Communication/Plan
-
Continue comfort care measures only
Assessment / Plan
Assessment / Plan
84 year old male with a past medical history of end-stage dementia, Parkinson's disease, ambulatory dysfunction, and hypertension was brought in by family for increased agitation and aggression. Family has been caring for patient at home, and
patient has been deteriorating. He is mostly nonverbal, with poor oral intake. Recently, he has been violent with combative behavior at home. Now family is unable to continue caring for him at home due to his combativeness and aggression. Family
also reported history of staring episodes with visual hallucinations at times. Patient was seen in conjunction with psychiatry and neurology, who recommends hospice for his end-stage dementia and Parkinson's disease. Patient was seen in
conjunction with the hospice nurse. Family agreed to transition the patient to comfort care measures only on 01/29/2025, and he is admitted to inpatient hospice.
#Progressive worsening dementia with behavioral disturbances
Seems to be chronic in the last few months, precisely since October 2024. Patient's primary neurologist has been trying to titrate antipsychotic and sedatives.
Currently on Abilify, Zoloft, Aricept, amantadine and clonazepam. No missing medications.
Per family, he sleeps most of the day and noticeably combative at times upon waking up
Daughter also reported chronic staring episodes with visual hallucinations at time and did not feel relation to medication changes
CT head, no acute findings, mild atrophy and moderate periventricular small vessel ischemic disease described as stable. Normal white count with normal temperature on admission
Continue Parkinson medications
Holding Zoloft and Abilify. PRN IV Ativan for agitation and Risperdal
Appreciate neurology and psychiatry input, patient has end-stage Parkinson's and end-stage dementia, they agree with hospice
Family is aware that patient likely end-stage dementia and might be comfort care appropriate
01/29/2025�daughter/POA agreed to comfort care measures only, and agreed to discontinue all oral medications
Hospice following, continue comfort care measures only
# Advanced Parkinson medication with swallowing difficulty and dementia
Gait dysfunction requiring assistant farm operations manager at home
# Primary hypertension
DNR
Physical Exam
General: No Apparent respiratory Distress and Appears Chronically Ill
HEENT: Anicteric. Atraumatic
Respiratory: Clear
Cardiac: S1/S2 and Regular Rhythm
GI: Soft, Non Tender, Non Distended and Normal Bowel Sounds
Musculoskeletal: No Clubbing, No Cyanosis and No Edema
Neuro: Other (He opens eyes but does not focus, seems confused and unable to follow commands. + Rigidity.
Psych: Apparent Dementia
Anticipated Discharge: 24 - 48 hours
Subjective/Interval History
-
Date of Service: February 02, 2025
Patient resting comfortably. No fever, no vomiting.
Objective Data
-
Vital Signs:
Vital Signs
Temp Pulse Resp BP Pulse Ox
97.6 F 78 18 127/89 94
02/01/25 20:12 02/01/25 20:12 02/01/25 20:12 02/01/25 20:12 02/01/25 20:12
I&O
02/01/25 02/02/25 02/03/25
06:59 06:59 06:59
Intake Total 0 / 0
Output Total 280 / 280 400 / 400
Balance -280 / -280 -400 / -400
--- NOTE | 2025-02-02 10:04 | HOSPNOTE ---
Patient remains GIP level of care appropriate. Patient requiring Morphine IV x3 for pain in the last 24 hours and Ativan IV x 1 for anxiety. Patient is not longer eating or drinking, in oliguric with a condom catheter. Hospice nurse will continue to
evaluate GIP appropriateness on a daily basis. No family present at time of hospice visit. Informal conference with staff nurse Yareli, no new concerns at this time.
[2025-02-02] MEDS: ATIVAN 0.5 MG IV ×2 (10:56→16:32)
--- NOTE | 2025-02-02 13:54 | CHAP ---
Xavi was resting comfortably, mostly nonverbal. He did not show signs of pain. Daughter, Janette, was present, along with Xavi's sister, Melissa, and her , Teodoro, from [place]. Janette was tearful, asking prayers for her dad. She is devoted to
him, and has been his loving caregiver. Melissa commented that Xavi 'knows Joe.' They shared that Xavi and his Marcial have been 60 years. Sequins Winder provided emotional and spiritual support through presence, dialogue, Scripture
reading and prayer. Janette expressed a desire for support during the week. Sequins Winder will continue support through visits 2x week, and will update the Pastoral Care staff.
[2025-02-02 19:05] VITALS: BP 134/75
[2025-02-03 07:28] VITALS: BP 128/61
--- NOTE | 2025-02-03 07:47 | W.PN.HOSP.TC ---
Today's Communication/Plan
-
Continue comfort care measures only
Assessment / Plan
Assessment / Plan
84 year old male with a past medical history of end-stage dementia, Parkinson's disease, ambulatory dysfunction, and hypertension was brought in by family for increased agitation and aggression. Family has been caring for patient at home, and
patient has been deteriorating. He is mostly nonverbal, with poor oral intake. Recently, he has been violent with combative behavior at home. Now family is unable to continue caring for him at home due to his combativeness and aggression. Family
also reported history of staring episodes with visual hallucinations at times. Patient was seen in conjunction with psychiatry and neurology, who recommends hospice for his end-stage dementia and Parkinson's disease. Patient was seen in
conjunction with the hospice nurse. Family agreed to transition the patient to comfort care measures only on 01/29/2025, and he is admitted to inpatient hospice.
End-stage dementia with behavioral disturbance
Advanced Parkinson's disease
Essential hypertension
Anxiety/depression
-Appreciate neurology and psychiatry input, recommend hospice
-Appreciate hospice nurse, family agreed to transition the patient to comfort care measures only on 01/29/2025
-Continue comfort care measures only
DNR
Physical Exam
General: No Apparent respiratory Distress and Appears Chronically Ill
HEENT: Anicteric. Atraumatic
Respiratory: Clear
Cardiac: S1/S2 and Regular Rhythm
GI: Soft, Non Tender, Non Distended and Normal Bowel Sounds
Musculoskeletal: No Clubbing, No Cyanosis and No Edema
Neuro: Other (He opens eyes but does not focus, seems confused and unable to follow commands. + Rigidity.
Psych: Apparent Dementia
Anticipated Discharge: 24 - 48 hours
Subjective/Interval History
-
Date of Service: February 02, 2025
Patient resting comfortably in bed. No fever, no vomiting.
Objective Data
-
Vital Signs:
Vital Signs
Temp Pulse Resp BP Pulse Ox
97.7 F 52 18 190/63 93
02/02/25 07:34 02/02/25 07:34 02/02/25 07:34 02/02/25 07:34 02/02/25 07:34
I&O
02/01/25 02/02/25 02/03/25
06:59 06:59 06:59
Intake Total 0 / 0
Output Total 280 / 280 400 / 400
Balance -280 / -280 -400 / -400
[2025-02-03] MEDS: MORPHINE SULFATE 2 MG IV (10:54)
[2025-02-03] MEDS: MORPHINE 100 IV (12:51)
--- NOTE | 2025-02-03 13:00 | HOSPNOTE ---
Patient minimally responsive, will open eyes not focusing, nonverbal. Flacc elevated, facial grimacing, very rigid and tense at rest, becomes worse with care. Family at bedside and voiced concerns that patient does not appear comfortable. Keeps
jolting and throwing arms up, kicking legs off side of bed and restless. Daughter feels patient needs more medication. Had just been medicated with morphine 10 mins before I entered the room. Rechecked patient 30 mins after and family reported no
improvement. Flacc still elevated. Discussed a morphine drip with family and spouse in agreement, just wants him comfortable. Emotional support provided. Contacted Dr. Prajapati, morphine drip to be started. Coordinated care with patients nurse Lala.
Patient to remain GIP for management of symptoms.
Morphine drip started on step 1.
[2025-02-03 23:45] VITALS: BP 154/77
[2025-02-04 07:42] VITALS: BP 135/77
--- NOTE | 2025-02-04 09:56 | W.PN.HOSP.TC ---
Today's Communication/Plan
-
Continue comfort care measures only
Assessment / Plan
Assessment / Plan
84 year old male with a past medical history of end-stage dementia, Parkinson's disease, ambulatory dysfunction, and hypertension was brought in by family for increased agitation and aggression. Family has been caring for patient at home, and
patient has been deteriorating. He is mostly nonverbal, with poor oral intake. Recently, he has been violent with combative behavior at home. Now family is unable to continue caring for him at home due to his combativeness and aggression. Family
also reported history of staring episodes with visual hallucinations at times. Patient was seen in conjunction with psychiatry and neurology, who recommends hospice for his end-stage dementia and Parkinson's disease. Patient was seen in
conjunction with the hospice nurse. Family agreed to transition the patient to comfort care measures only on 01/29/2025, and he is admitted to inpatient hospice.
End-stage dementia with behavioral disturbance
Advanced Parkinson's disease
Essential hypertension
Anxiety/depression
-Appreciate neurology and psychiatry input, recommend hospice
-Appreciate hospice nurse, family agreed to transition the patient to comfort care measures only on 01/29/2025
-Continue comfort care measures only
DNR
Physical Exam
General: No Apparent respiratory Distress and Appears Chronically Ill
HEENT: Anicteric. Atraumatic
Respiratory: Clear
Cardiac: S1/S2 and Regular Rhythm
GI: Soft, Non Tender, Non Distended and Normal Bowel Sounds
Musculoskeletal: No Clubbing, No Cyanosis and No Edema
Neuro: Other (He opens eyes but does not focus, seems confused and unable to follow commands. + Rigidity.
Psych: Apparent Dementia
Anticipated Discharge: 24 - 48 hours
Subjective/Interval History
-
Date of Service: February 04, 2025
Patient resting comfortably. No fever, no vomiting.
Objective Data
-
Vital Signs:
Vital Signs
Temp Pulse Resp BP Pulse Ox
98.2 F 81 16 135/77 91
02/04/25 07:42 02/04/25 07:42 02/04/25 07:42 02/04/25 07:42 02/04/25 07:42
I&O
02/03/25 02/04/25 02/05/25
06:59 06:59 06:59
Intake Total 0 / 0 0 / 0
Output Total 150 / 150 250 / 250
Balance -150 / -150 -250 / -250
[2025-02-04] MEDS: MORPHINE SULFATE 2 MG IV ×2 (12:17→16:58)
--- NOTE | 2025-02-04 12:21 | CM ---
CM following re: discharge planning.
Reviewed pt's chart.
Pt continues receiving inpatient hospice care with hospice GIP.
CM is available for emotional support.
--- NOTE | 2025-02-04 13:25 | HOSPNOTE ---
No family present. Patient is actively dying and is on a morphine drip. No family present at this time. Patient will be seen daily and encouraged to medicate patient prior to any care or repositioning. The patient continues to be inpatient
appropriate for pain management.
--- NOTE | 2025-02-04 16:00 | CHAP ---
Fr. Mendoza Foss of [facility] in [place] gave Xavi Last Rites.
[2025-02-04] MEDS: ATIVAN 0.5 MG SL (16:24)
[2025-02-04 21:42] VITALS: BP 137/76
[2025-02-05] MEDS: MORPHINE SULFATE 2 MG IV ×9 (00:22→23:25)
[2025-02-05 07:15] VITALS: BP 121/79
--- NOTE | 2025-02-05 08:26 | W.PN.HOSP.TC ---
Today's Communication/Plan
-
comfort care
Assessment / Plan
Assessment / Plan
84 year old male with a past medical history of end-stage dementia, Parkinson's disease, ambulatory dysfunction, and hypertension was brought in by family for increased agitation and aggression. Family has been caring for patient at home, and
patient has been deteriorating. He is mostly nonverbal, with poor oral intake. Recently, he has been violent with combative behavior at home. Now family is unable to continue caring for him at home due to his combativeness and aggression. Family
also reported history of staring episodes with visual hallucinations at times. Patient was seen in conjunction with psychiatry and neurology, who recommends hospice for his end-stage dementia and Parkinson's disease. Patient was seen in
conjunction with the hospice nurse. Family agreed to transition the patient to comfort care measures only on 01/29/2025, and he is admitted to inpatient hospice.
End-stage dementia with behavioral disturbance
Advanced Parkinson's disease
Essential hypertension
Anxiety/depression
-Appreciate neurology and psychiatry input, recommend hospice
-Appreciate hospice nurse, family agreed to transition the patient to comfort care measures only on 01/29/2025
-Continue comfort care measures only
DNR
Physical Exam
General: No Apparent respiratory Distress and Appears Chronically Ill
HEENT: Anicteric. Atraumatic
Respiratory: Clear
Cardiac: S1/S2 and Regular Rhythm
GI: Soft, Non Tender, Non Distended and Normal Bowel Sounds
Psych: calm
Anticipated Discharge: 24 - 48 hours
Subjective/Interval History
-
Date of Service: February 05, 2025
resting comfortably
Objective Data
-
Vital Signs:
Vital Signs
Temp Pulse Resp BP Pulse Ox
99.7 F 108 18 121/79 90
02/05/25 07:15 02/05/25 07:15 02/05/25 07:15 02/05/25 07:15 02/05/25 07:15
I&O
02/04/25 02/05/25 02/06/25
06:59 06:59 06:59
Intake Total 0 / 0 0 / 0
Output Total 250 / 250 125 / 125
Balance -250 / -250 -125 / -125
Review of Systems
-
Unable to obtain full review of systems at this time due to: Patient Non-verbal
History Source: Patient
Data Reviewed
-
Diagnostic Radiology: Report Reviewed by me
Labs: Labs Reviewed by me
--- NOTE | 2025-02-05 10:03 | HOSPNOTE ---
No family present, patient is on a morphine drip and is actively dying. Patient is completely unresponsive. Patient will be seen daily by hospice nurse.
[2025-02-05] MEDS: MORPHINE 100 IV (13:02)
[2025-02-05] MEDS: ATIVAN 0.5 MG IV (13:38)
[2025-02-05] MEDS: NSS (PRESERVATIVE FREE) 0.25 ML IV (13:39)
--- NOTE | 2025-02-05 13:57 | CM ---
M following re: discharge planning.
Reviewed pt's chart.
Pt continues receiving inpatient hospice care with hospice GIP.
CM is available for emotional support.
--- NOTE | 2025-02-05 17:56 | HOSPNOTE ---
Xavi was sleeping, non-responsive. Daughter Janette, Marcial, Xavi's son and daughter in law were present. They welcomed prayer for Xavi, and reported that he received Sacrament of the Sick earlier in the week. Daughter Janette is very concerned
about her father's comfort, and the hospital staff is aware. Speech Pathology Assistant provided emotional and spiritual support, and will continue support through visits 2x week.
[2025-02-05 20:02] VITALS: BP 112/64
[2025-02-06] MEDS: MORPHINE SULFATE 4 MG IV (03:26)
--- NOTE | 2025-02-06 06:30 | W.PN.DEATH ---
Pronouncement of
-
Called to see patient to pronounce.
No spontaneous heart tones or respirations noted.
Patient not responsive to verbal stimuli.
Patient is pronounced .
Time of : 05:23
Date of : 02/06/25
Cause of : End-stage dementia with behavioral disturbance, advanced Parkinson's disease, hypertension, hyperlipidemia
Family Notified: Yes (Daughter/ Sydni )
--- NOTE | 2025-02-06 09:46 | PTCARENOTE ---
Addendum entered by Jordana Robles RN 02/06/25 10:45:
IV removed by night time babysitter RN prior to change of shift. Postmortem care provided, no belongings at bedside other than blanket sent down on patient.
Original Note:
Patient prior to change of shift this AM, [facility] notified and morphine gtt wasted by night time babysitter RN. Family at bedside visiting patient at this time.
--- NOTE | 2025-02-06 11:38 | W.DCSUMMARY ---
Discharge Summary
Discharge Data
Date of Admission: 01/31/25
Date of Discharge: 02/06/25
-
Pending Results: No
Hospital Course
Time of : 05:23
Date of : 02/06/25
Cause of : End-stage dementia with behavioral disturbance
Hospital Course :
84 year old male with a past medical history of end-stage dementia, Parkinson's disease, ambulatory dysfunction, and hypertension was brought in by family for increased agitation and aggression. Patient was mostly non-verbal, with poor oral intake.
He had recent violent and combative behavior at home and was brought to the ER. He was seen in conjunction with psychiatry and neurology, who recommends hospice for his end-stage dementia and Parkinson's disease. Patient was seen in conjunction
with the hospice nurse. Family agreed to transition the patient to comfort care measures only on 01/29/2025, and he was admitted to inpatient hospice. He was started on a IV morphine gtt and peacefully morning of 02/06/25.
Important imaging findings :
Procedure findings :
Discharge Plan
-
Patient Disposition:
Date/Time
Date/Time: 02/06/25 05:23
Discharge Date and Time
Discharge Date/Time: 02/06/25 05:23
Print Language: THAI
== END 2025-02-06 05:23 | disposition expired | DRG 951 ==
LOC: 2 NORTH 17:36
PROVIDERS: ADMITTING PHYSICIAN Family Medicine; ATTENDING PHYSICIAN Student in an Organized Health Care Education/Training Program
DX: Z51.5 Encounter for palliative care (principal); F02.818 Dementia in other diseases classified elsewhere, unspecified severity, with other behavioral disturbance; F02.811 Dementia in other diseases classified elsewhere, unspecified severity, with agitation; I10 Essential (primary) hypertension; E78.5 Hyperlipidemia, unspecified; G20.A1 Parkinson's disease without dyskinesia, without mention of fluctuations; R44.1 Visual hallucinations; Z66 Do not resuscitate; F41.9 Anxiety disorder, unspecified; F32.A Depression, unspecified